=== PATIENT | female | born 1975 | race Caucasian/White ===

== ENCOUNTER 2016-07-21 15:34 | Emergency (ER) | payer BC ==
[2016-07-21 18:32] VITALS: BP 124/78
--- NOTE | 2016-07-21 19:11 | UC ---
Throat Pain/Nasal Akhil HPI - HPI Summary HPI Summary: kids trading Strep throat back and forth, now son is positive and on abx. She wants entire family treated simultaneously as they all have mild sore throats. - History of Current Complaint Chief Complaint: UCRespiratory Stated Complaint: ST Time Seen by Provider: 07/21/16 18:33 Hx Obtained From: Patient Hx Last Menstrual Period: 07/10/16 Onset/Duration: Gradual Onset, Lasting Days - 2 Severity: Mild Cough: None Associated Signs & Symptoms: Positive: Dysphagia - Epiglottits Risk Factors Epiglottis Risk Factors: Negative - Allergies/Home Medications Allergies/Adverse Reactions: Allergies Allergy/AdvReac Type Severity Reaction Status Date / Time environmental Allergy Congestion Uncoded 07/21/16 18:32 Home Medications: Home Medications Multivitamins/Minerals TAB* [Thera M Plus TAB*] 1 tab PO DAILY 07/21/16 [ History Confirmed 07/21/16] PMH/Surg Hx/FS Hx/Imm Hx Endocrine History Of: Reports: Thyroid Disease Denies: Diabetes - prediabetic Respiratory History Of: Reports: Asthma - Surgical History Surgical History: Yes Surgery Procedure, Year, and Place: R ACL repair - Family History Known Family History: Positive: Hypertension - Social History Occupation: Employed Full-time Lives: With Family Alcohol Use: None Substance Use Type: None Smoking Status (MU): Never Smoked Tobacco - Immunization History Most Recent Influenza Vaccination: Not the Season Review of Systems Constitutional: Fatigue Skin: Negative Eyes: Negative ENT: Sore Throat Respiratory: Negative Cardiovascular: Negative Gastrointestinal: Negative Genitourinary: Negative Motor: Negative Neurovascular: Negative Musculoskeletal: Negative Neurological: Negative Psychological: Negative All Other Systems Reviewed And Are Negative: Yes Physical Exam Triage Information Reviewed: Yes Appearance: Well-Appearing, No Pain Distress, Well-Nourished Vital Signs: Initial Vital Signs Temp 98.7 F 07/21/16 18:27 Pulse 91 07/21/16 18:27 Resp 20 07/21/16 18:27 BP 124/78 07/21/16 18:27 Pulse Ox 98 07/21/16 18:27 Vital Signs Reviewed: Yes Eye Exam: Normal Eyes: Positive: Conjunctiva Clear ENT: Positive: Pharyngeal erythema Neck exam: Normal Neck: Positive: Supple Respiratory Exam: Normal Cardiovascular Exam: Normal Musculoskeletal Exam: Normal Neurological Exam: Normal Psychological Exam: Normal Skin Exam: Normal Throat Pain/Nasal Course/Dx - Differential Dx/Diagnosis Differential Diagnosis/HQI/PQRI: Pharyngitis, URI Provider Diagnoses: pharyngitis Discharge - Discharge Plan Condition: Stable Disposition: HOME Prescriptions: Amoxicillin/Clavulanate TAB* [Augmentin TAB 875*] 875 mg PO BID #20 tab Patient Education Materials: Strep Throat (ED) Referrals: Luis Alfredo Marino MD [Primary Care Provider] -
== END 2016-07-21 19:28 | disposition home or self-care (01) ==
LOC: UCCORT 15:34
DX: J02.9 Acute pharyngitis, unspecified (principal)
CPT/HCPCS: 99212; G0463

== ENCOUNTER 2017-09-08 11:28 | Emergency (ER) | payer BC ==
[2017-09-08 11:54] VITALS: BP 117/77
--- NOTE | 2017-09-08 12:09 | UC ---
Respiratory Complaint HPI - HPI Summary HPI Summary: 1 week of worsening cough chest tightness, wheeze and congestion---needs to sleep sitting up at night - - History of Current Complaint Chief Complaint: UCRespiratory Stated Complaint: COUGH,RESPIRATORY Time Seen by Provider: 09/08/17 12:08 Hx Obtained From: Patient Hx Last Menstrual Period: present ?: No Onset/Duration: Gradual Onset, Lasting Weeks - 1, Still Present Timing: Constant Severity Initially: Mild Severity Currently: Mild Pain Intensity: 0 Character: Cough: Productive Aggravating Factors: Recumbent Position Alleviating Factors: Upright Position Associated Signs And Symptoms: Positive: Pleuritic Chest Pain, URI - Allergies/Home Medications Allergies/Adverse Reactions: Allergies Allergy/AdvReac Type Severity Reaction Status Date / Time environmental Allergy Congestion Uncoded 07/21/16 18:32 Home Medications: Home Medications Budesonide/Formote 160/4.5(NF) [Symbicort 160/4.5 (NF)] 1 puff PO DAILY [History Confirmed 09/08/17] LevoCETirizine TAB (NF) [Xyzal TAB (NF)] 5 mg PO DAILY 09/08/17 [History Confirmed 09/08/17] Mometasone Furoate [Nasonex] 17 gm NS DAILY 09/08/17 [History Confirmed 09/08/17 ] PMH/Surg Hx/FS Hx/Imm Hx Previously Healthy: No Respiratory History: Asthma - Surgical History Surgical History: Yes Surgery Procedure, Year, and Place: R ACL repair - Family History Known Family History: Positive: Hypertension - Social History Occupation: Works From/At Home Lives: With Family Alcohol Use: None Substance Use Type: None Smoking Status (MU): Never Smoked Tobacco - Immunization History Most Recent Influenza Vaccination: Not the Season Review of Systems Constitutional: Negative Skin: Negative Eyes: Negative ENT: Nasal Discharge Respiratory: Shortness Of Breath, Cough Cardiovascular: Negative Gastrointestinal: Negative Genitourinary: Negative Motor: Negative Neurovascular: Negative Musculoskeletal: Negative Neurological: Negative Psychological: Negative Is Patient Immunocompromised?: No All Other Systems Reviewed And Are Negative: Yes Physical Exam Triage Information Reviewed: Yes Appearance: Well-Nourished, Ill-Appearing, Pain Distress Vital Signs: Initial Vital Signs Temp 97.6 F 09/08/17 11:42 Pulse 62 09/08/17 11:42 Resp 18 09/08/17 11:42 BP 117/77 09/08/17 11:42 Pulse Ox 100 09/08/17 11:42 Vital Signs Reviewed: Yes Eye Exam: Normal Eyes: Positive: Conjunctiva Clear ENT Exam: Normal ENT: Positive: Normal ENT inspection, Hearing grossly normal, Pharynx normal, Nasal congestion, Uvula midline. Negative: Nasal drainage, Trismus, Muffled voice, Hoarse voice, Dental tenderness, Sinus tenderness Dental Exam: Normal Neck exam: Normal Neck: Positive: 1 Respiratory Exam: Normal Respiratory: Positive: Chest non-tender, No respiratory distress, No accessory muscle use, Rhonchi, Wheezing Cardiovascular Exam: Normal Cardiovascular: Positive: RRR, No Murmur, Pulses Normal, Brisk Capillary Refill Musculoskeletal Exam: Normal Musculoskeletal: Positive: Strength Intact, ROM Intact, No Edema Neurological Exam: Normal Neurological: Positive: Alert, Muscle Tone Normal Psychological Exam: Normal Skin Exam: Normal UC Diagnostic Evaluation - Laboratory O2 Sat by Pulse Oximetry: 100 Respiratory Course/Dx - Course Course Of Treatment: albuterol, prednisone, zithromax, increase fluids follow with pcp prn - Differential Dx/Diagnosis Provider Diagnoses: Bronchitis with Bronchospasm Discharge - Discharge Plan Condition: Stable Disposition: HOME Prescriptions: Albuterol 2.5MG/3ML (0.083%)* [Ventolin 2.5 MG/3 ML NEB.KATHERINE*] 2.5 mg INH Q4H #1 box Albuterol HFA INHALER* [Ventolin HFA Inhaler*] 2 puff INH Q4H PRN #1 mdi PRN Reason: cough Azithromycin TAB* [Zithromax TAB (Z-SHAZIA) 250 mg #6 tabs] 2 tab PO .TODAY, THEN 1 DAILY #1 shzaia guaiFENesin/CODIEN 100MG-10MG* [Robitussin AC 100Mg-10Mg*] 5 - 10 ml PO Q4H PRN #120 udc MDD 40 PRN Reason: cough predniSONE TAB* [Deltasone TAB*] 20 mg PO DAILY 6 Days #9 tab Patient Education Materials: Acute Bronchitis (ED), How to Use a Nebulizer (ED) , Bronchospasm (ED) Referrals: Luis Alfredo Marino MD [Primary Care Provider] - If Needed
== END 2017-09-08 12:28 | disposition home or self-care (01) ==
LOC: UCCORT 11:28
DX: J45.909 Unspecified asthma, uncomplicated (principal)
CPT/HCPCS: 99212; G0463

== ENCOUNTER 2018-02-26 12:43 | Emergency (ER) | payer BC ==
--- OUTSIDE RECORDS SUMMARY | 2018-02-26 14:19 | XMS REPORT ---
:1975 External Reference #:[id number] Author Organization [facility] Address [address] [place] [address] Phone [phone] Care Team Providers Name Role Phone Luis Alfredo Marino MD Care Team Information Sequins Slinger Unavailable Luis Alfredo Marino MD Primary Care Physician Unavailable Payers Type Date Identification Numbers Payment Provider Subscriber Commercial Effective: Policy Number: RANJITH Colbert Saray Brandon 2017 [id number] Shayan PayID: [id number] [address] [address] [place] [address] Medigap Part B Expires: 2017 Policy Number: RANJITH Colbert Livan Shayan [id number] PayID: [id number] [address] [address] [place] [address] Problems Date Description Provider Status Onset: 09/13/2017 Viremia Benny Lanier MD Active Onset: 09/13/2017 Acute bronchitis Benny Lanier MD Active Onset: 09/13/2017 Acute maxillary sinusitis Benny Lanier MD Active Onset: 04/26/2017 Uncomplicated moderate persistent Benny Lanier MD Active asthma Onset: 04/26/2017 Allergic rhinitis Benny Lanier MD Active Onset: 04/26/2017 Allergic rhinitis due to pollen Benny Lanier MD Active Family History Date Family Member(s) Problem(s) Comments General Asthma General Allergies Social History Type Date Description Comments Smoke-Free Home is smoke-free Pets Cows Pets 2 cats Pets 2 dogs Pets Guinea Pig Pets Lizards Pets Fish Smoking Patient has never smoked Smoking No Second Hand Smoke Exposure Allergies, Adverse Reactions, Alerts Date Description Reaction Status Severity Comments 04/26/2017 NKDA active Medications Medication Date Status Form Strength Qnty SIG Indications Ordering Provider Levocetirizine 11/24 Active Tablets 5mg 30tab Take 1 Augustine Wan s Tablet By MANISHA Licona Mouth Once Dailyas Needed Medrol 09/13 Active TBPK 4mg 21uni take as J01. ts directed Cliff Lanier MD Moxifloxacin HCL 09/13 Active Tablets 400mg 14tab one . s tablet by Cliff Lanier MD mouth every day x 14 days Mometasone 04/26 Active Suspension 50mcg/Act 17gm instill 2 J30.1 er Fur sprays Cliff Lanier MD into each nostril once daily Xyzal Allergy 04/26 Active Tablets 5mg 30tab take 1 30.1 24HR s tablet (5 Cliff Lanier MD mg) by oral route once daily as needed Proair HFA 04/26 Active Aerosol 108(90Bas 25.5g 2 puffs J30.1 e) m every 4 Cliff Lanier MD mcg/Act as needed Symbicort 04/26 Active Aerosol 160-4.5mc 10.2u 2 puff J30.1 g/Act nits Twice A MANISHA Licona Vitamin D-3 Active Capsules 1000Unit Unknown /0000 Vitamin B12 Active Tablets ER 1000mcg Unknown /0000 Magnesium Active Tablets 250mg Unknown /0000 Culturelle Active Capsules Unknown Digestive Health / Probiotic Levothyroxine Hx Tablets 112mcg 1 by Unknown Sodium /0000 mouth - every day 08/02 Montelukast Hx Tablets 10mg take one Unknown Sodium /0000 tablet by - mouth 04/26 daily in the evening Asmanex Hx Aerosol 220mcg/In inhale 1 Unknown Twisthaler 30 h puff by Metered Doses - mouth one 04/26 daily at nighttime Flonase Hx Suspension 27.5mcg/S spray 2 Unknown Sensimist /0000 pray sprays in - each 04/26 nostr once daily. Fish Oil Hx Capsules 1000mg 1 by Unknown /0000 mouth - every day 09/13 Medications Administered in Office Medication Date Status Form Strength Qnty SIG Indications Ordering Provider Allergy 02/02/ Administered Injection Christopher Injection 2 2017 Cliff Lanier MD Or More Allergy 01/24/ Administered Injection Christopher Injection 2 2017 Cliff Lanier MD Or More Allergy 01/19/ Administered Injection Christopher Injection 2 2017 Cliff Lanier MD Or More Allergy 01/12/ Administered Injection Christopher Injection 2 2017 Cliff Lanier MD Or More Allergy 01/05/ Administered Injection Christopher Injection 2 2017 Cliff Lanier MD Or More Allergy 12/27/ Administered Injection Christopher Injection 2 2017 Cliff Lanier MD Or More Allergy 12/20/ Administered Injection Christopher Injection 2 2018 Cliff Lanier MD Or More Allergy 12/15/ Administered Injection Christopher Injection 2 2017 Cliff Lanier MD Or More Allergy 12/08/ Administered Injection Christopher Injection 2 2017 Cliff Lanier MD Or More Allergy 12/06/ Administered Injection Christopher Injection 2 2018 Cliff Lanier MD Or More Allergy 11/15/ Administered Injection Christopher Injection 2 2018 Cliff Lanier MD Or More Allergy 11/10/ Administered Injection Christopher Injection 2 2018 Cliff Lanier MD Or More Allergy 11/08/ Administered Injection Christopher Injection 2 2018 Cliff Lanier MD Or More Allergy 11/03/ Administered Injection Christopher Injection 2 2018 Cliff Lanier MD Or More Allergy 10/27/ Administered Injection Christopher Injection 2 2017 Cliff Lanier MD Or More Allergy 10/20/ Administered Injection Christopher Injection 2 2017 Cliff Lanier MD Or More Allergy 10/13/ Administered Injection Christopher Injection 2 2017 Cliff Lanier MD Or More Allergy 10/04/ Administered Injection Christopher Injection 2 2017 Cliff Lanier MD Or More Allergy // Administered Injection Christopher Injection 2 2017 Cliff Lanier MD Or More Allergy // Administered Injection Christopher Injection 2 2018 Cliff Lanier MD Or More Allergy 09/01/ Administered Injection Christopher Injection 2 2018 Cliff Lanier MD Or More Allergy 08/25/ Administered Injection Christopher Injection 2 2018 Cliff Lanier MD Or More Vital Signs Date Vital Result Comment 02/02/2018 BP Systolic 122 mmHg BP Diastolic 84 mmHg Height 67 inches 5'7" Weight 193.00 lb BMI (Body Mass Index) 30.2 kg/m2 Heart Rate 72 /min Respiratory Rate 19 /min Body Temperature 98.4 F O2 % BldC Oximetry 98 % 09/13/2017 BP Systolic 124 mmHg BP Diastolic 68 mmHg Height 67 inches 5'7" Heart Rate 64 /min Body Temperature 98.6 F O2 % BldC Oximetry 98 % 08/02/2017 BP Systolic 124 mmHg BP Diastolic 83 mmHg Height 67 inches 5'7" Weight 195.00 lb BMI (Body Mass Index) 30.5 kg/m2 Heart Rate 86 /min Respiratory Rate 16 /min Body Temperature 98.3 F O2 % BldC Oximetry 96 % 04/26/2017 BP Systolic 114 mmHg BP Diastolic 80 mmHg Height 67 inches 5'7" Weight 190.00 lb BMI (Body Mass Index) 29.8 kg/m2 Heart Rate 72 /min Respiratory Rate 10 /min Body Temperature 98.7 F O2 % BldC Oximetry 97 % Results Test Date Test Result H/L Range Note Order 02/02/2018 Nitric Oxide <pending> PFT Supplies <pending> PFT With Bronchodilator <pending> Order 08/02/2017 Skin Test Seasonal and Environmental 59 Procedures Date CPT Code Description Status 02/02/2018 83269 Allergy Injection 2 Or More Completed 02/02/2018 81418 Nitric Oxide Gas Determination Completed 02/02/2018 29505 Bronchodilation Responsiveness Spirometry Pre/Post Completed Bronchodil Adm 01/24/2018 82147 Allergy Injection 2 Or More Completed 01/19/2018 85802 Allergy Injection 2 Or More Completed 01/12/2018 93439 Allergy Injection 2 Or More Completed 01/05/2018 82049 Allergy Injection 2 Or More Completed 12/27/2017 10394 Allergy Injection 2 Or More Completed 12/20/2017 03570 Allergy Injection 2 Or More Completed 12/15/2017 15733 Allergy Injection 2 Or More Completed 12/08/2017 35354 Allergy Injection 2 Or More Completed 12/06/2017 47547 Allergy Injection 2 Or More Completed 11/15/2017 38903 Allergy Injection 2 Or More Completed 11/10/2017 16132 Allergy Injection 2 Or More Completed 11/08/2017 86623 Allergy Injection 2 Or More Completed 11/03/2017 53874 Allergy Injection 2 Or More Completed 10/27/2017 88755 Allergy Injection 2 Or More Completed 10/20/2017 08102 Allergy Injection 2 Or More Completed 10/13/2017 98526 Allergy Injection 2 Or More Completed 10/04/2017 11250 Allergy Injection 2 Or More Completed 09/29/2017 78193 Allergy Injection 2 Or More Completed 09/27/2017 70896 Allergy Injection 2 Or More Completed 09/01/2017 37670 Allergy Injection 2 Or More Completed 08/25/2017 81252 Allergy Injection 2 Or More Completed 08/10/2017 91643 Allergy Antigens Single Or Multiple Completed 08/02/2017 90557 Allergy Tests Percutaneous W/ Allergenic Extracts Completed 08/02/2017 79499 Allergy Tests Percutaneous W/ Allergenic Extracts Completed 04/26/2017 81394 Nitric Oxide Gas Determination Completed 04/26/2017 44816 Bronchodilation Responsiveness Spirometry Pre/Post Completed Bronchodil Adm Encounters Type Date Location Provider CPT E/M Dx Office Visit 02/02/2018 8:30a [facility] 87184 J30.89 J30.1 J45.40 Office Visit 09/13/2017 11:15[place] [address] J01.01 J20.9 B34.9 Office Visit 08/02/2017 10:00a [place] MANISHA Perez 71439 J30.1 J30.89 J45.40 Office Visit 04/26/2017 11:30[place] [address] J30.1 J30.89 J45.40 Plan of Care Future Appointment(s):02/09/2018 2:00 pm - Coty Blair NP at [id number] - FAYE JangJ30.89 Other allergic [id number] Allergic rhinitis due to [id number] Moderate persistent asthma, uncomplicatedComments:Patient's PFT shows mild obstruction and exhaled nitric oxide is normal at 23 ppb. Patient to continue Symbicort for prophylaxis of her lungs and pro-air for breakthrough chest symptoms. Patient to continue Nasonex for prophylaxis of her nose and Xyzal for breakthrough nasal symptoms. Saline nasal rinse and HEPA air filter may help.Patient will try holding Symbicort in her lungs for 10-15 seconds and waiting 1 minute between inhalations.Patient to continue allergen immunotherapy injections.Patientwill be food tested for allergies. Patient to stop taking Xyzal 48 hours prior to the food test.Follow up:6 months, PFT and NIOX prior
--- OUTSIDE RECORDS SUMMARY | 2018-02-26 14:19 | XMS REPORT ---
:1975 External Reference #:[id number] Author Organization [facility] Address [address] [place] [address] Phone [phone] Care Team Providers Name Role Phone Luis Alfredo Marino MD Care Team Information Dipper And Baker Unavailable Luis Alfredo Marino MD Primary Care Physician Unavailable Payers Type Date Identification Numbers Payment Provider Subscriber Commercial Effective: Policy Number: RANJITH Michelus So Brandon 2017 [id number] Shayan PayID: [id number] [address] [address] [place] [address] Medigap Part B Expires: 2017 Policy Number: RANJITH Colbert Livan Shayan [id number] PayID: [id number] [address] [address] [place] [address] Problems Date Description Provider Status Onset: 02/09/2018 Allergy to other foods Coty Blair NP Active Onset: 09/13/2017 Viremia Benny Lanier MD Active [...] Form Strength Qnty SIG Indications Ordering Provider Epinephrine 02/09 Active Solution 0.3mg/0.3 2unit as Coty Auto-Injec ML s directed [place] Blair mat repeat in 30 mintues x 1. Levocetirizine 11/24 Active Tablets 5mg 30tab Take 1 Cade Wanide s Tablet By MANISHA Licona Mouth Once Dailyas Needed Medrol 09/13 Active TBPK 4mg 21uni take as J01. ts directed Cliff Lanier MD Moxifloxacin HCL 09/13 Active Tablets 400mg 14tab one J01. s tablet by Cliff Lanier MD mouth every day x 14 days Mometasone 04/26 Active Suspension 50mcg/Act 17gm instill 2 J30.1 Eighty Eight sprays Cliff Lanier MD into each nostril once daily Xyzal Allergy 04/26 Active Tablets 5mg 30tab take 1 J30.1 24HR s tablet (5 Cliff Lanier MD [...] Active Tablets ER 1000mcg Unknown /0000 Magnesium 00 Active Tablets 250mg Unknown /0000 Culturelle Active Capsules Unknown Digestive Health / Probiotic Levothyroxine Hx Tablets 112mcg 1 by Unknown Sodium /0000 mouth - every day 08/02 Montelukast Hx Tablets 10mg take one Unknown Sodium /0000 tablet by - mouth 04/26 daily in the evening Asmanex Hx Aerosol 220mcg/In inhale 1 Unknown Twisthaler 30 h puff by Metered Doses - mouth one 04/26 time daily at nighttime Flonase 00 Hx Suspension 27.5mcg/S spray 2 Unknown Sensimist /0000 pray sprays in - each 04/26 nostr once daily. Fish Oil Hx Capsules 1000mg 1 by Unknown /0000 mouth - every day 09/13 Medications Administered in Office Medication Date Status Form Strength Qnty SIG Indications Ordering Provider Allergy 02/16/ Administered Injection Christopher Injection 2 2017 Cliff Lanier MD Or More Allergy 02/02/ Administered Injection Christopher Injection 2 2018 Cliff Lanier MD Or More Allergy 01/24/ Administered Injection Christopher Injection 2 2017 Cliff Lanier MD Or More Allergy 01/19/ Administered Injection Christopher Injection 2 2018 Cliff Lanier MD Or More Allergy 01/12/ Administered Injection Christopher Injection 2 2018 Cliff Lanier MD Or More Allergy 01/05/ Administered Injection Christopher Injection 2 2017 Cliff Lanier MD Or More Allergy 12/27/ Administered Injection Christopher Injection 2 2018 Cliff Lanier MD Or More Allergy 12/20/ Administered Injection Christopher Injection 2 2018 Cliff Lanier MD Or More Allergy 12/15/ Administered Injection Christopher Injection 2 2018 Cliff Lanier MD Or More Allergy 12/08/ Administered Injection Christopher Injection 2 2018 Cliff Lanier MD Or More Allergy 12/06/ [...] 2018 Cliff Lanier MD Or More Allergy // Administered Injection Christopher Injection 2 2018 Cliff Lanier MD Or More Allergy 10/20/ Administered Injection Christopher Injection 2 2018 Cliff Lanier MD Or More Allergy 10/13/ Administered Injection Christopher Injection 2 2018 Cliff Lanier MD Or More Allergy // Administered Injection Christopher Injection 2 2018 Cliff Lanier MD Or More Allergy 04// Administered Injection Christopher Injection 2 2018 Cliff Lanier MD Or More Allergy 09/27/ Administered Injection Christopher Injection 2 2017 Cliff Lanier MD Or More Allergy 09/01/ Administered Injection Christopher Injection 2 2017 Cliff Lanier MD Or More Allergy 08/25/ [...] Date Test Result H/L Range Note Order 08/02/2017 Skin Test Seasonal and Environmental 59 Procedures Date CPT Code Description Status 02/16/2018 47960 Allergy Injection 2 Or More Completed 02/16/2018 08102 Allergy Tests Percutaneous W/ Allergenic Extracts Completed 02/09/2018 63386 Allergy Tests Percutaneous W/ Allergenic Extracts Completed 02/09/2018 90271 Allergy Tests Percutaneous W/ Allergenic Extracts Completed 02/02/2018 70274 Bronchodilation Responsiveness Spirometry Pre/Post Completed Bronchodil Adm 02/02/2018 66568 Bronchodilation Responsiveness Spirometry Pre/Post Completed Bronchodil Adm 02/02/2018 30323 Nitric Oxide Gas Determination Completed 02/02/2018 06211 Nitric Oxide Gas Determination Completed 02/02/2018 23775 Allergy Injection 2 Or More Completed 01/24/2018 95097 Allergy Injection 2 Or More Completed 01/19/2018 86275 Allergy Injection 2 Or More Completed 01/12/2018 21532 Allergy Injection 2 Or More Completed 01/05/2018 01546 Allergy Injection 2 Or More Completed 12/27/2017 50486 Allergy Injection 2 Or More Completed 12/20/2017 94807 Allergy Injection 2 Or More Completed 12/15/2017 04693 Allergy Injection 2 Or More Completed 12/08/2017 33644 Allergy Injection 2 Or More Completed 12/06/2017 90975 Allergy Injection 2 Or More Completed 11/15/2017 58085 Allergy Injection 2 Or More Completed 11/10/2017 58480 Allergy Injection 2 Or More Completed 11/08/2017 22191 Allergy Injection 2 Or More Completed 11/03/2017 32404 Allergy Injection 2 Or More Completed 10/27/2017 84532 Allergy Injection 2 Or More Completed 10/20/2017 61916 Allergy Injection 2 Or More Completed 10/13/2017 41481 Allergy Injection 2 Or More Completed 10/04/2017 18829 Allergy Injection 2 Or More Completed 09/29/2017 46760 Allergy Injection 2 Or More Completed 09/27/2017 96545 Allergy Injection 2 Or More Completed 09/01/2017 32637 Allergy Injection 2 Or More Completed 08/25/2017 35542 Allergy Injection 2 Or More Completed 08/10/2017 57216 Allergy Antigens Single Or Multiple Completed 08/02/2017 92736 Allergy Tests Percutaneous W/ Allergenic Extracts Completed 08/02/2017 67958 Allergy Tests Percutaneous W/ Allergenic Extracts Completed 04/26/2017 23905 Nitric Oxide Gas Determination Completed 04/26/2017 47840 Bronchodilation Responsiveness Spirometry Pre/Post Completed Bronchodil Adm Encounters Type Date Location Provider CPT E/M Dx Office Visit 02/02/2018 8:30a FAYE Cox 27246 J30.89 J30.1 J45.40 Office Visit 09/13/2017 11:15[place] [address] J01.01 J20.9 B34.9 Office Visit 08/02/2017 10:00a MANISHA Latif 13685 J30.1 J30.89 J45.40 Office Visit 04/26/2017 11:30[place] [address] J30.1 J30.89 J45.40 Plan of Care Future Appointment(s):02/21/2018 2:25 pm - Injection 1 at [facility]16/06/2018 10 :00 am - Coty Blair NP at [facility]/16/2018 - Coty Blair, NPZ91.018 Allergy to other foodsComments:Patient presents for discussion of skin test to foods with positives to crab, lobster, shrimp, scallop, green pea, celery and cow's milk.Also patient reports a direct correlation to shellfish when she consumed him there was swelling and closing of the throat, she received Benadryl with resolution of the symptoms no further actions were required. She is to employ lifetime avoidance of the shellfish. Patient also has chest tightness to ice cream and was positive to cows milk she is to avoid dairy as these symptoms could become more symptomatic and severe.She has a natural aversion to green peas she hates them and never eats them most likely due to GI symptoms that have occurred in the past.I have prescribed epinephrine 0.3mg/3ml IM injection following accidental ingestion and may repeat in 30 minutes if needed. Instructed if she uses her EpiPen wants to go directly to the emergency department for monitoring.The patient verbalized understanding of the seriousness of the allergies will employ lifetime avoidance and knows what to do if accidental ingestion occurs.J30.89 Other allergic [id number] Moderate persistent asthma, uncomplicatedComments:Patient reports breakthrough asthma symptoms heaviness in the chest, nighttime wheezing and shortness of breath during humid days. She is currently being managed on;Mometasone Furoate 50 mcg /Act instill 2 sprays into each nostril once dailyXyzal Allergy 24HR 5 mg take 1 tablet (5 mg) by oral route once daily as neededProair HFA 108 (90 Base ) mcg/Act 2 puffs every 4 as neededSymbicort 160-4.5 mcg/act 2 puff twice A day.Patient will discontinue Symbicort I have given her samples of Breo 200/25 MCG one inhalation daily. Patient will follow up in 3 weeks sooner if symptoms worsen or persist.Patient verbalized understanding of and agreement with the discharge plan.
--- OUTSIDE RECORDS SUMMARY | 2018-02-26 14:19 | XMS REPORT ---
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 Luis Alfredo Marino MD Primary Care Physician Unavailable Payers Type Date Identification Numbers Payment Provider Subscriber Commercial Effective: Policy Number: RANJITH Colbert Saray Brandon 2017 [id number] Shayan PayID: [id number] [address] [address] [place] [address] Medigap Part B Expires: 2017 Policy Number: RANJITH Colbert Livan Shayan [id number] PayID: [id number] [address] [address] [place] [address] Problems Date Description Provider Status Onset: 09/13/2017 [...] Administered Injection Christopher Injection 2 2017 Cliff Lnaier MD Or More Allergy 01/24/ Administered Injection [...] Procedures Date CPT Code Description Status 02/02/2018 89618 Allergy Injection 2 Or More Completed 01/24/2018 56738 Allergy Injection 2 Or More Completed 01/19/2018 40118 Allergy Injection 2 Or More Completed 01/12/2018 38484 Allergy Injection 2 Or More Completed 01/05/2018 49319 Allergy Injection 2 Or More Completed 12/27/2017 02645 Allergy Injection 2 Or More Completed 12/20/2017 04329 Allergy Injection 2 Or More Completed 12/15/2017 12811 Allergy Injection 2 Or More Completed 12/08/2017 80265 Allergy Injection 2 Or More Completed 12/06/2017 76628 Allergy Injection 2 Or More Completed 11/15/2017 65069 Allergy Injection 2 Or More Completed 11/10/2017 59414 Allergy Injection 2 Or More Completed 11/08/2017 41002 Allergy Injection 2 Or More Completed 11/03/2017 26393 Allergy Injection 2 Or More Completed 10/27/2017 25319 Allergy Injection 2 Or More Completed 10/20/2017 94726 Allergy Injection 2 Or More Completed 10/13/2017 47717 Allergy Injection 2 Or More Completed 10/04/2017 92551 Allergy Injection 2 Or More Completed 09/29/2017 07150 Allergy Injection 2 Or More Completed 09/27/2017 81206 Allergy Injection 2 Or More Completed 09/01/2017 68975 Allergy Injection 2 Or More Completed 08/25/2017 52716 Allergy Injection 2 Or More Completed 08/10/2017 63308 Allergy Antigens Single Or Multiple Completed 08/02/2017 07811 Allergy Tests Percutaneous W/ Allergenic Extracts Completed 08/02/2017 31027 Allergy Tests Percutaneous W/ Allergenic Extracts Completed 04/26/2017 19608 Nitric Oxide Gas Determination Completed 04/26/2017 05923 Bronchodilation Responsiveness Spirometry Pre/Post Completed Bronchodil Adm Encounters Type Date Location Provider CPT E/M Dx Office Visit 09/13/2017 11:15[place] [address] J01.01 J20.9 B34.9 Office Visit 08/02/2017 10:00a Kirt Daigle [facility]- [address] J30.1 J30.89 J45.40 Office Visit 04/26/2017 11:30[place] [address] J30.1 J30.89 J45.40 Plan of Care 09/13/2017 - Benny Lanier MDJ01.01 Acute recurrent maxillary sinusitisNew Medication:Medrol 4 mgMoxifloxacin HCL 400 mgJ20.9 Acute bronchitis , tdyusnczzzeA53.9 Viral infection, unspecified
[2018-02-26 14:46] VITALS: BP 117/79
--- NOTE | 2018-02-26 15:06 | UC ---
Respiratory Complaint HPI - HPI Summary HPI Summary: 42 y/o female presents to the urgent care c/o dry cough, SOB and chest tightness since Since pt c/o chest tightness- saw Dr. Lanier (pt's asthma MD) and was rx 'd prednisone 30mg BID x5 days. Was told to started prednisone, otc mucinex-d and do nebulizer tx q4h prn. Called today d/t worsening chest tightness, congestion, dry cough w/ wheezing. Starting last night pt noticed pain in btwn shoulder blades, states pain is worse when taking deep breaths. Last neb tx was 1200 today w/ no relief in sxs. Called Dr. Lanier's office and told to come here for further eval. - History of Current Complaint Chief Complaint: UCRespiratory Stated Complaint: CHEST CONGESTION, COUGH Time Seen by Provider: 02/26/18 14:47 Hx Obtained From: Patient Hx Last Menstrual Period: 02/06/18 Pain Intensity: 4 - Allergies/Home Medications Allergies/Adverse Reactions: Allergies Allergy/AdvReac Type Severity Reaction Status Date / Time milk Allergy See Comment Verified 02/26/18 14:34 shellfish derived Allergy Anaphylatic Verified 02/26/18 14:34 Shock environmental Allergy Congestion Uncoded 02/26/18 14:34 PMH/Surg Hx/FS Hx/Imm Hx - Surgical History Surgical History: Yes Surgery Procedure, Year, and Place: R ACL repair - Family History Known Family History: Positive: Hypertension - Social History Alcohol Use: None Substance Use Type: None Smoking Status (MU): Never Smoked Tobacco - Immunization History Most Recent Influenza Vaccination: Not the 2016/2017 Season Most Recent Tetanus Shot: UTD Physical Exam - Summary Physical Exam Summary: Vital Signs Reviewed: Yes General: well developed, well nourished female sitting in the examining table w/ o any apparent distress Eyes: Positive: Conjunctiva Clear - PERRLA, EOMI, fundi grossly normal ENT: Positive: Normal ENT inspection, Hearing grossly normal, Pharynx normal, Nasal congestion - edematous and erythematous nasal mucosa, Nasal drainage - yellowish drainage, TMs normal. Negative: Tonsillar swelling, Tonsillar exudate Neck: Positive: Supple, Nontender, No Lymphadenopathy Respiratory: no orthopnea or dyspnea. Able to speak in full sentences, no retractions or accessory muscle use, no tripod position, stridor, or head bobbing. CTA bilaterally, mild wheezing in the left upper posterior lung wheezes , rhonchi, rales. Cardiovascular: Positive: RRR, No Murmur, Pulses Normal, Brisk Capillary Refill Abdomen Description: Positive: Nontender, No Organomegaly, Soft. Negative: CVA Tenderness (R), CVA Tenderness (L) Bowel Sounds: Positive: Present Musculoskeletal Exam: Normal Musculoskeletal: Positive: Strength Intact, ROM Intact, No Edema Neurological Exam: Normal Psychological Exam: Normal Skin Exam: Normal Triage Information Reviewed: Yes Vital Signs: Initial Vital Signs Temp 98.5 F 02/26/18 14:37 Pulse 68 02/26/18 14:37 Resp 18 02/26/18 14:37 BP 117/79 02/26/18 14:37 Pulse Ox 100 02/26/18 14:37 Diagnostic Evaluation - Laboratory O2 Sat by Pulse Oximetry: 100 Respiratory Course/Dx - Differential Dx/Diagnosis Differential Diagnosis/HQI/PQRI: Asthma, Bronchitis, Influenza, Lower Resp Infection, Sinusitis Provider Diagnoses: 1- Asthma exacerbation due to bronchitis. 2- SOB Discharge - Sign-Out/Discharge Documenting (check all that apply): Patient Departure - D/C home All imaging exams completed and their final reports reviewed: No Studies - Discharge Plan Condition: Stable Disposition: HOME Prescriptions: Albuterol/Ipratropium NEB.KATHERINE* [Duoneb (Albuterol 2.5 MG/Ipratropium 0.5 MG)] 1 neb INH Q4H #1 box DOXYcycline CAP(*) [DOXYcycline 100MG CAP(*)] 100 mg PO BID #20 cap predniSONE TAB* [Deltasone TAB*] 5 mg PO DAILY #13 tab Patient Education Materials: Asthma (ED), Acute Bronchitis (ED) Referrals: Andrew Lanier MD [Medical Doctor] - 2 Days Luis Alfredo Marino MD [Primary Care Provider] - 2 Days Additional Instructions: 1- Take Prednisone PO taper dose as directed starting tomorrow. First loading dose given today. You will take 60mg PO qd tomorrow, then 40mg PO qd x 4 days. Use the Prednisone you have at home and 13 tabs were ordered at your pharmacy. 2-Use the Duoneb nebulizer treatment to alleviate SOB, and wheezing as directed . Increase fluid intake, rest and eat well. 3- Take Doxycycline PO as directed 4- If symptoms do not improve or worsen or your develop SOB with fever and severe wheezing please go immediately to the ER further evaluation and treatment. 5- Please F/u w/ your Waiter/Waitress Formal DR Lanier in 2 days for further management on your Asthma - Billing Disposition and Condition Condition: STABLE Disposition: Home
[2018-02-26] MEDS ORDERED: methylPREDNISolone 125 MG* 2 ML VIAL IM ONE (15:07)
[2018-02-26] MEDS ORDERED: Albuterol/Ipratropium NEB.SOL* Albuterol 2.5 MG/Ipratropium 0.5 MG 3 ML INH ONE (15:08)
== END 2018-02-26 16:27 | disposition home or self-care (01) ==
LOC: UCCORT 12:43
DX: J45.901 Unspecified asthma with (acute) exacerbation (principal)
CPT/HCPCS: 93005; 96372; 99212; A9270-GY; G0463; J2930

== ENCOUNTER 2018-12-07 18:03 | Emergency (ER) | payer BC ==
[2018-12-07 18:19] VITALS: BP 127/79
--- NOTE | 2018-12-07 18:34 | ED ---
Throat Pain/Nasal Congestion - HPI Summary HPI Summary: 43 yr old female with the complaint of three days of runny nose, post nasal drip , and bilateral maxillary sinus pain. She has had a cough as well. No fever. She does have left ear pain. She has had sinus infections before. - History of Current Complaint Chief Complaint: UCGeneralIllness Time Seen by Provider: 12/07/18 18:27 - Allergies/Home Medications Allergies/Adverse Reactions: Allergies Allergy/AdvReac Type Severity Reaction Status Date / Time milk Allergy See Comment Verified 02/26/18 14:34 shellfish derived Allergy Anaphylatic Verified 02/26/18 14:34 Shock environmental Allergy Congestion Uncoded 02/26/18 14:34 Home Medications: Home Medications Ibuprofen 600 mg PO DAILY PRN 12/07/18 [History Confirmed 12/07/18] PMH/Surg Hx/FS Hx/Imm Hx Endocrine/Hematology History: Denies: Hx Diabetes, Hx Thyroid Disease Cardiovascular History: Denies: Hx Hypertension Respiratory History: Denies: Hx Asthma, Hx Chronic Obstructive Pulmonary Disease (COPD) GI History: Denies: Hx Ulcer - Surgical History Surgery Procedure, Year, and Place: R ACL repair Infectious Disease History: No Infectious Disease History: Reports: Hx of Known/Suspected MRSA - Cyst in LEFT axilla Denies: Hx Clostridium Difficile, Hx Hepatitis, Hx Human Immunodeficiency Virus (HIV), Hx Shingles, Hx Tuberculosis, Hx Known/Suspected VRE, Hx Known/ Suspected VRSA, History Other Infectious Disease, Traveled Outside the [place] in Last 30 Days - Family History Known Family History: Positive: Hypertension - Social History Occupation: Employed Full-time Alcohol Use: None Substance Use Type: Reports: None Smoking Status (MU): Never Smoked Tobacco Review of Systems Constitutional: Negative Positive: Ear Ache, Nasal Discharge Positive: Cough All Other Systems Reviewed And Are Negative: Yes Physical Exam Triage Information Reviewed: Yes Vital Signs On Initial Exam: Initial Vitals Temp Pulse Resp BP Pulse Ox 98.5 F 59 18 127/79 100 12/07/18 18:14 12/07/18 18:14 12/07/18 18:14 12/07/18 18:14 12/07/18 18:14 Vital Signs Reviewed: Yes Appearance: Positive: Well-Appearing, No Pain Distress Skin: Positive: Warm, Skin Color Reflects Adequate Perfusion Head/Face: Positive: Normal Head/Face Inspection Eyes: Positive: EOMI, RODRIGO ENT: Positive: Pharyngeal erythema, Nasal congestion, Nasal drainage, TMs normal , Sinus tenderness Neck: Positive: Supple, Nontender Respiratory/Lung Sounds: Positive: Clear to Auscultation, Breath Sounds Present Cardiovascular: Positive: RRR. Negative: Murmur Abdomen Description: Negative: Distended Musculoskeletal: Positive: Strength/ROM Intact Neurological: Positive: Sensory/Motor Intact, Alert, Oriented to Person Place, Time, CN Intact II-III, Normal Gait, Speech Normal Psychiatric: Positive: Normal - Norman Coma Scale Best Eye Response: 4 - Spontaneous Best Motor Response: 6 - Obeys Commands Best Verbal Response: 5 - Oriented Coma Scale Total: 15 Diagnostics - Vital Signs Vital Signs Temp Pulse Resp BP Pulse Ox 12/07/18 18:14 98.5 F 59 18 127/79 100 - Laboratory Lab Statement: Any lab studies that have been ordered have been reviewed, and results considered in the medical decision making process. EENT Course/Dx - Course Course Of Treatment: 43 yr old with sinusitis. Rx with augmentin - Diagnoses Provider Diagnoses: Sinusitis Discharge - Sign-Out/Discharge Documenting (check all that apply): Patient Departure All imaging exams completed and their final reports reviewed: No Studies - Discharge Plan Condition: Good Disposition: HOME Prescriptions: Amoxicillin/Clavulanate TAB* [Augmentin TAB 875*] 875 mg PO BID #20 tab Patient Education Materials: Sinusitis (ED) Referrals: Luis Alfredo Marino MD [Primary Care Provider] - 2 Days - Billing Disposition and Condition Condition: GOOD Disposition: Home
== END 2018-12-07 18:35 | disposition home or self-care (01) ==
LOC: UCCORT 18:03
DX: J32.9 Chronic sinusitis, unspecified (principal)
CPT/HCPCS: 99212; G0463

== ENCOUNTER 2019-02-07 09:06 | Emergency (ER) | payer BC ==
[2019-02-07 09:22] VITALS: BP 121/76
--- NOTE | 2019-02-07 09:34 | UC ---
Throat Pain/Nasal Akhil HPI - HPI Summary HPI Summary: 43-year-old woman comes in with a chief complaint of runny nose sinus pressure and fevers. Patient's had a runny nose for several weeks. She does have environmental allergies. Last 3 days she's had sinus pressure her teeth are hurting. She had fever of 101 at home. She has tried some Sudafed does not helping. Recently his been seeing an technology recruiter and recently diagnosed with primary immunodeficiency. - History of Current Complaint Chief Complaint: UCGeneralIllness Stated Complaint: SINUS Time Seen by Provider: 02/07/19 09:27 Hx Last Menstrual Period: due in 2 days Pain Intensity: 3 - Allergies/Home Medications Allergies/Adverse Reactions: Allergies Allergy/AdvReac Type Severity Reaction Status Date / Time shellfish derived Allergy Anaphylatic Verified 02/26/18 14:34 Shock milk AdvReac See Comment Verified 02/07/19 09:22 environmental Allergy Congestion Uncoded 02/26/18 14:34 Home Medications: Home Medications Budesonide/Formote 160/4.5(NF) [Symbicort 160/4.5 (NF)] 2 puff INH BID 02/07/19 [History Confirmed 02/07/19] Fluticasone NASAL SPRAY 50MCG* [Flonase NASAL SPRAY 50MCG*] 2 spray BOTH NARES DAILY 02/07/19 [History Confirmed 02/07/19] Wrwplfdv07/Folic AC/Nadh/Coq10 [Xyzbac 1 mg] 1 tab PO DAILY 02/07/19 [History Confirmed 02/07/19] PMH/Surg Hx/FS Hx/Imm Hx Previously Healthy: Yes - primary immunodeficiency - Surgical History Surgical History: Yes Surgery Procedure, Year, and Place: R ACL repair - Family History Known Family History: Positive: Hypertension - Social History Alcohol Use: None Substance Use Type: None Smoking Status (MU): Never Smoked Tobacco - Immunization History Most Recent Influenza Vaccination: Not the 2016/2017 Season Most Recent Tetanus Shot: UTD Review of Systems All Other Systems Reviewed And Are Negative: Yes Constitutional: Positive: Fever Skin: Positive: Negative Eyes: Positive: Negative ENT: Positive: Nasal Discharge, Sinus Congestion, Sinus Pain/Tenderness Respiratory: Positive: Negative Cardiovascular: Positive: Negative Gastrointestinal: Positive: Negative Motor: Positive: Negative Neurovascular: Positive: Negative Musculoskeletal: Positive: Negative Neurological: Positive: Negative Psychological: Positive: Negative Is Patient Immunocompromised?: No Physical Exam Triage Information Reviewed: Yes Appearance: No Pain Distress, Well-Nourished, Ill-Appearing - MILD Vital Signs: Initial Vital Signs Temp 98.3 F 02/07/19 09:16 Pulse 77 02/07/19 09:16 Resp 18 02/07/19 09:16 BP 121/76 02/07/19 09:16 Pulse Ox 98 02/07/19 09:16 Vital Signs Reviewed: Yes Eye Exam: Normal Eyes: Positive: Conjunctiva Clear ENT: Positive: Pharyngeal erythema, Nasal congestion, Nasal drainage, TMs normal Neck: Positive: Supple Respiratory: Positive: Lungs clear, Normal breath sounds, No respiratory distress Cardiovascular: Positive: RRR Musculoskeletal: Positive: Strength Intact, ROM Intact Neurological: Positive: Alert, Muscle Tone Normal Psychological: Positive: Age Appropriate Behavior Skin Exam: Normal Throat Pain/Nasal Course/Dx - Course Course Of Treatment: DISCUSSED VIRAL VERSES BACTERIAL INFECTION AND THE ROLE OF ANTIBIOTICS. THE PATIENT PREFERS TO BE ON ANTIBIOTICS AT THIS TIME. - Differential Dx/Diagnosis Provider Diagnosis: Sinusitis Discharge - Sign-Out/Discharge Documenting (check all that apply): Patient Departure All imaging exams completed and their final reports reviewed: No Studies - Discharge Plan Condition: Stable Disposition: HOME Prescriptions: Amoxicillin/Clavulanate TAB* [Augmentin TAB 875*] 875 mg PO BID #20 tab Patient Education Materials: Sinusitis (ED) Referrals: Luis Alfredo Marino MD [Primary Care Provider] - Additional Instructions: FOLLOW UP WITH YOUR DOCTOR IF NOT COMPLETELY IMPROVED. GET RECHECKED SOONER IF YOUR CONDITION WORSENS OR ANY QUESTIONS OR CONCERNS. - Billing Disposition and Condition Condition: STABLE Disposition: Home
== END 2019-02-07 09:39 | disposition home or self-care (01) ==
LOC: UCCORT 09:06
DX: J32.9 Chronic sinusitis, unspecified (principal); R50.9 Fever, unspecified; Z91.011 Allergy to milk products; Z91.013 Allergy to seafood; J30.2 Other seasonal allergic rhinitis
CPT/HCPCS: 99212; G0463

== ENCOUNTER 2019-05-04 10:57 | Emergency (ER) | payer BC ==
--- OUTSIDE RECORDS SUMMARY | 2019-05-04 12:24 | XMS REPORT | Continuity of Care Document ---
:1975 External Reference #:[id number] Author Name MANISHA Perez (transmitted by agent of provider Benny Lanier) Address [address] [address] Care Team Providers Name Role Phone Luis Alfredo Marino MD - Internal Care Team Information Book Solicitor Medicine Problems Active Problems Provider Date Allergic rhinitis due to pollen Benny Lanier MD Onset: 04/26/2017 Allergic rhinitis Benny Lanier MD Onset: 04/26/2017 Uncomplicated moderate persistent Benny Lanier MD Onset: 04/26/2017 asthma Acute maxillary sinusitis Benny Lanier MD Onset: 09/13/2017 Acute bronchitis Benny Lanier MD Onset: 09/13/2017 Viremia Benny Lanier MD Onset: 09/13/2017 Allergy to other foods Coty Blair NP Onset: 02/09/2018 Exacerbation of moderate persistent MANISHA Perez Onset: 11/2017 asthma Immunodeficiency disorder MANISHA Perez Onset: 03/02/2018 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 03/15/2019 10mg Tablets (10 mg) by oral MD Yannick route once daily in the evening Gamunex-C infuse 35gms IV D84.9 Benny A. 09/19/2018 2.5GM/25ML q4 weeks MD Yannick Solution Ipratropium Inhale one vial 360ml J45.41 Benny A. 03/02/2018 [place]/Albuterol via nebulizer Q4 MD Yannick Sulfate hours as needed 0.5-2.5(3)mg/3ML Solution Epinephrine use as directed 4units Benny ASoni 02/09/2018 0.3mg/0.3ML as needed for MD Yannick Solution Auto-Inject anaphylaxis. Levocetirizine take 1 tablet by 90tabs Livan Wan, 11/24/2017 Dihydrochloride mouth once daily RPA-C 5mg as needed Tablets Proair HFA 2 puffs every 4 25.5gm J30.1 jena A. 04/26/2017 108(90Base) as needed MD Yannick mcg/Act Aerosol Symbicort 2 puff twice a 30.6gm J30.1 opher A. 04/26/2017 160-4.5mcg/Act day MD Yannick Aerosol Mometasone Furoate spray two sprays 51gm J30.1 jena A. 04/26/2017 in each nostril MD Yannick 50mcg/Act Suspension once daily. Medications Administered in Office Medication SIG Qnty Indications Ordering Provider Date Allergy Injection 2 Or More Benny Lanier MD 03/15/2019 Injection Allergy Injection 2 Or More Benny Lanier MD 03/08/2019 Injection Allergy Injection 2 Or More Benny Lanier MD 03/01/2019 Injection Allergy Injection 2 Or More Benny Lanier MD 02/15/2019 Injection Allergy Injection 2 Or More Benny Lanier MD 02/06/2019 Injection Allergy Injection 2 Or More Benny Lanier MD 01/30/2019 Injection Allergy Injection 2 Or More Benny Lanier MD 01/25/2019 Injection Allergy Injection 2 Or More Benny Lanier MD 01/11/2019 Injection Allergy Injection 2 Or More Benny Lanier MD 12/21/2018 Injection Allergy Injection 2 Or More Benny Lanier MD 11/28/2018 Injection Allergy Injection 2 Or More Benny Lanier MD 11/23/2018 Injection Allergy Injection 2 Or More Benny Lanier MD 11/09/2018 Injection Allergy Injection 2 Or More Benny Lanier MD 10/26/2018 Injection Allergy Injection 2 Or More Benny Lanier MD 10/19/2018 Injection Allergy Injection 2 Or More Benny Lanier MD 10/05/2018 Injection Allergy Injection 2 Or More Benny Lanier MD 09/28/2018 Injection Allergy Injection 2 Or More Benny Lanier MD 09/19/2018 Injection Allergy Injection 2 Or More Benny Lanier MD 09/14/2018 Injection Allergy Injection 2 Or More Benny Lanier MD 09/05/2018 Injection Allergy Injection 2 Or More Benny Lanier MD 08/29/2018 Injection Allergy Injection 2 Or More Benny Lanier MD 08/10/2018 Injection Allergy Injection 2 Or More Benny Lanier MD 08/03/2018 Injection Allergy Injection 2 Or More Benny Lanier MD 07/11/2018 Injection Allergy Injection 2 Or More Benny Lanier MD 07/04/2018 Injection Allergy Injection 2 Or More Benny Lanier MD 06/13/2018 Injection Allergy Injection 2 Or More Benny Lanier MD 06/08/2018 Injection Allergy Injection 2 Or More Benny Lanier MD 05/25/2018 Injection Allergy Injection 2 Or More Benny Lanier MD 05/16/2018 Injection Allergy Injection 2 Or More Benny Lanier MD 05/11/2018 Injection Allergy Injection 2 Or More Benny Lanier MD 05/04/2018 Injection Allergy Injection 2 Or More Benny Lanier MD 04/27/2018 Injection Allergy Injection 2 Or More Benny Lanier MD 04/20/2018 Injection Allergy Injection 2 Or More Benny Lanier MD 04/13/2018 Injection Allergy Injection 2 Or More Benny Lanier MD 03/30/2018 Injection Allergy Injection 2 Or More Benny Lanier MD 03/23/2018 Injection Allergy Injection 2 Or More Benny Lanier MD 02/16/2018 Injection Allergy Injection 2 Or More Benny Lanier MD 02/02/2018 Injection Allergy Injection 2 Or More Benny Lanier MD 01/24/2018 Injection Allergy Injection 2 Or More Benny Lanier MD 01/19/2018 Injection Allergy Injection 2 Or More Benny Lanier MD 01/12/2018 Injection Allergy Injection 2 Or More Benny Lanier MD 01/05/2018 Injection Allergy Injection 2 Or More Benny Lanier MD 12/27/2017 Injection Allergy Injection 2 Or More Benny Lanier MD 12/20/2017 Injection Allergy Injection 2 Or More Benny Lanier MD 12/15/2017 Injection Allergy Injection 2 Or More Benny Lanier MD 12/08/2017 Injection Allergy Injection 2 Or More Benny Lanier MD 12/06/2017 Injection Allergy Injection 2 Or More Benny Lanier MD 11/15/2017 Injection Allergy Injection 2 Or More Benny Lanier MD 11/10/2017 Injection Allergy Injection 2 Or More Benny Lanier MD 11/08/2017 Injection Allergy Injection 2 Or More Benny Lanier MD 11/03/2017 Injection Allergy Injection 2 Or More Benny Lanier MD 10/27/2017 Injection Allergy Injection 2 Or More Benny Lanier MD 10/20/2017 Injection Allergy Injection 2 Or More Benny Lanier MD 10/13/2017 Injection Allergy Injection 2 Or More Benny Lanier MD 10/04/2017 Injection Allergy Injection 2 Or More Benny Lanier MD 09/29/2017 Injection Allergy Injection 2 Or More Benny Lanier MD 09/27/2017 Injection Allergy Injection 2 Or More Benny Lanier MD 09/01/2017 Injection Allergy Injection 2 Or More Benny Lanier MD 08/25/2017 Injection Immunizations CPT Code Status Date Vaccine Lot # [id number] Given 04/03/2018 Pneumococcal Vaccine 2Yrs Or Older [id number] Vital Signs Date Vital Result Comment 03/15/2019 1:11pm BP Systolic 126 mmHg BP Diastolic 76 mmHg Height 67 inches 5'7" Weight 186.00 lb BMI (Body Mass Index) 29.1 kg/m2 Heart Rate 77 /min O2 % BldC Oximetry 98 % 09/19/2018 1:24pm BP Systolic 118 mmHg BP Diastolic 88 mmHg Height 67 inches 5'7" Weight 186.00 lb BMI (Body Mass Index) 29.1 kg/m2 Heart Rate 73 /min Respiratory Rate 18 /min O2 % BldC Oximetry 97 % Results Description No Information Available Procedures Date Code Description Status 03/15/2019 77605 Allergy Injection 2 Or More Completed 03/15/2019 52698 Nitric Oxide Gas Determination Completed 03/15/2019 23604 Bronchodilation Responsiveness Spirometry Pre/Post Completed Bronchodil Adm 03/08/2019 24916 Allergy Injection 2 Or More Completed 03/01/2019 28424 Allergy Injection 2 Or More Completed 02/15/2019 98780 Allergy Injection 2 Or More Completed 02/06/2019 73124 Allergy Injection 2 Or More Completed 01/30/2019 12749 Allergy Injection 2 Or More Completed 01/25/2019 12919 Allergy Injection 2 Or More Completed 01/11/2019 66584 Allergy Injection 2 Or More Completed 12/21/2018 86215 Allergy Injection 2 Or More Completed 11/30/2018 88334 Allergy Antigens Single Or Multiple Completed 11/28/2018 94302 Allergy Injection 2 Or More Completed 11/23/2018 43015 Allergy Injection 2 Or More Completed 11/09/2018 95597 Allergy Injection 2 Or More Completed 10/26/2018 05631 Allergy Injection 2 Or More Completed 10/19/2018 74683 Allergy Injection 2 Or More Completed 10/05/2018 90971 Allergy Injection 2 Or More Completed 09/28/2018 42623 Allergy Injection 2 Or More Completed 09/19/2018 96878 Allergy Injection 2 Or More Completed 09/19/2018 06420 Nitric Oxide Gas Determination Completed 09/19/2018 20190 Bronchodilation Responsiveness Spirometry Pre/Post Completed Bronchodil Adm 09/14/2018 56528 Allergy Injection 2 Or More Completed Medical Devices Description No Information Available Encounters Type Date Location Provider Dx Diagnosis Office Visit 03/15/2019 [place] Kiser J45.40 Moderate persistent 1:00p Fen[place], asthma, uncomplicated RPA-C J30.1 Allergic rhinitis due to pollen J30.89 Other allergic rhinitis 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 Z91.013 Allergy to seafood Office Visit 09/19/2018 [place] Nieves Kiser D84.9 Immunodeficiency, 1:00p Fenstermacher, RPA-C unspecified J30.1 Allergic rhinitis due to pollen J30.89 Other allergic rhinitis J45.40 Moderate persistent asthma, uncomplicated 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 Fenstermacher, RPA-C uncomplicated 03/15/2019 J30.1 Allergic rhinitis due to pollen Benny Lanier MD 03/15/2019 J30.1 Allergic rhinitis due to pollen Nieves S. Fenstermacher, RPA -C 03/15/2019 J30.89 Other allergic rhinitis Benny Lanier MD 03/15/2019 J30.89 Other allergic rhinitis Nieves S. Fenstermacher, RPA-C 03/15/2019 D83.8 Other common variable Nieves S. Fenstermacher, RPA-C immunodeficiencies 03/15/2019 Z91.013 Allergy to seafood Nieves S. Fenstermacher, RPA-C 03/08/2019 J45.40 Moderate persistent asthma, Benny Lanier MD uncomplicated 03/08/2019 J30.1 Allergic rhinitis due to pollen Benny Lanier MD 03/08/2019 J30.89 Other allergic rhinitis Benny Lanier MD 03/01/2019 J45.40 Moderate persistent asthma, Benny Lanier MD uncomplicated 03/01/2019 J30.1 Allergic rhinitis due to pollen Benny Lanier MD 03/01/2019 J30.89 Other allergic rhinitis Benny Lanier MD 02/15/2019 J45.40 Moderate persistent asthma, Benny Lanier MD uncomplicated 02/15/2019 J30.1 Allergic rhinitis due to pollen Benny Lanier MD 02/15/2019 J30.89 Other allergic rhinitis Benny Lanier MD 02/06/2019 J45.40 Moderate persistent asthma, Benny Lanier MD uncomplicated 02/06/2019 J30.1 Allergic rhinitis due to pollen Benny Lanier MD 02/06/2019 J30.89 Other allergic rhinitis Benny Lanier MD 01/30/2019 J45.40 Moderate persistent asthma, Benny Lanier MD uncomplicated 01/30/2019 J30.1 Allergic rhinitis due to pollen Benny Lanier MD 01/30/2019 J30.89 Other allergic rhinitis Benny Lanier MD 01/25/2019 J45.40 Moderate persistent asthma, Benny Lanier MD uncomplicated 01/25/2019 J30.1 Allergic rhinitis due to pollen Benny Lanier MD 01/25/2019 J30.89 Other allergic rhinitis Benny Lanier MD 01/11/2019 J45.40 Moderate persistent asthma, Benny Lanier MD uncomplicated 01/11/2019 J30.1 Allergic rhinitis due to pollen Benny Lanier MD 01/11/2019 J30.89 Other allergic rhinitis Benny Lanier MD 12/21/2018 J45.40 Moderate persistent asthma, Benny Lanier MD uncomplicated 12/21/2018 J30.1 Allergic rhinitis due to pollen Benny Lanier MD 12/21/2018 J30.89 Other allergic rhinitis Benny Lanier MD 11/30/2018 J30.1 Allergic rhinitis due to pollen Benny Lanier MD 11/30/2018 J30.89 Other allergic rhinitis Benny Lanier MD 11/28/2018 J45.40 Moderate persistent asthma, Benny Lanier MD uncomplicated 11/28/2018 J30.1 Allergic rhinitis due to pollen Benny Lanier MD 11/28/2018 J30.89 Other allergic rhinitis Benny Lanier MD 11/23/2018 J45.40 Moderate persistent asthma, Benny Lanier MD uncomplicated 11/23/2018 J30.1 Allergic rhinitis due to pollen Benny Lanier MD 11/23/2018 J30.89 Other allergic rhinitis Benny Lanier MD 11/09/2018 J45.40 Moderate persistent asthma, Benny Lanier MD uncomplicated 11/09/2018 J30.1 Allergic rhinitis due to pollen Benny Lanier MD 11/09/2018 J30.89 Other allergic rhinitis Benny Lanier MD 10/26/2018 J45.40 Moderate persistent asthma, Benny Lanier MD uncomplicated 10/26/2018 J30.1 Allergic rhinitis due to pollen Benny Lanier MD 10/26/2018 J30.89 Other allergic rhinitis Benny Lanier MD 10/19/2018 J45.41 Moderate persistent asthma with Benny Lanier MD (acute) exacerbation 10/19/2018 J30.1 Allergic rhinitis due to pollen Benny Lanier MD 10/19/2018 J30.89 Other allergic rhinitis Benny Lanier MD 10/05/2018 J30.1 Allergic rhinitis due to pollen Benny Lanier MD 10/05/2018 J30.89 Other allergic rhinitis Benny Lainer MD 09/28/2018 J45.41 Moderate persistent asthma with Benny Lanier MD (acute) exacerbation 09/28/2018 J30.1 Allergic rhinitis due to pollen Benny Lanier MD 09/28/2018 J30.89 Other allergic rhinitis Benny Lanier MD 09/19/2018 J45.41 Moderate persistent asthma with Benny Lanier MD (acute) exacerbation 09/19/2018 D84.9 Immunodeficiency, unspecified Nieves SSoni Gordillostermmaya, RPA-C 09/19/2018 J30.1 Allergic rhinitis due to pollen Benny Lanier MD 09/19/2018 J30.1 Allergic rhinitis due to pollen Nieves SSoni Gordillostermmaya, RPA -C 09/19/2018 J30.89 Other allergic rhinitis Benny Lanier MD 09/19/2018 J30.89 Other allergic rhinitis Nieves SSoni Gordillostermachejose antonio, RPA-C 09/19/2018 J45.40 Moderate persistent asthma, Nieves SSoni Gordillostermacher, RPA-C uncomplicated 09/19/2018 D83.8 Other common variable Nieves SSoni Gordillostermachejose antonio, RPA-C immunodeficiencies 09/14/2018 J45.40 Moderate persistent asthma, Benny Lanier MD uncomplicated 09/14/2018 J30.1 Allergic rhinitis due to pollen Benny Lanier MD 09/14/2018 J30.89 Other allergic rhinitis Benny Lanier MD Plan of Treatment Future Appointment(s):09/13/2019 9:00 am - Nieves Daigle RPA-C at [facility]/19/2019 - Nivees Daigle RPA-CJ45.40 Moderate persistent asthma, uncomplicatedNew Medication:Singulair 10 mg - take 1 tablet (10 mg) by oral route once daily in the eveningComments:Patient with moderate-persistent asthma. Today's PFT is within normal limits. NIOX is 22ppb. Continue Symbicort as prescribed. I will give Singulair for additional prophylaxis of the nose and chest. I have advised Saray to use Duoneb when she has chest congestion or breakthrough wheezing, chest tightness or shortness of breath.Follow up:6 months - w/PFT and NIOX prior to agxscN42.1 Allergic rhinitis due to pollenComments:Continue Nasonex and Xyzal as prescribed. Continue allergy injections as scheduled.Follow up:6 months.J30.89 Other allergic eufpomnvZ03.8 Other common variable immunodeficienciesComments:Patient has been approved for Gamunex. She plans to begin infusions as soon as Gamunex is available.Z91.013 Allergy to seafoodComments:Continue strict avoidance of all shellfish. I will renew EpiPen today. Functional Status Description No Information Available Mental Status Description No Information Available Referrals Description No Information Available
--- OUTSIDE RECORDS SUMMARY | 2019-05-04 12:24 | XMS REPORT | Continuity of Care Document ---
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 03/02/2018 [place]/Albuterol via nebulizer Q4 MD Yannick Sulfate hours as needed 0.5-2.5(3)mg/3ML Solution Epinephrine as directed mat 2units Coty Blair NP 02/09/2018 0.3mg/0.3ML repeat in 30 Solution Auto-Inject mintues x 1. Levocetirizine take 1 tablet by 90tabs Livan Wan, 11/24/2017 Dihydrochloride mouth once daily RPA-C 5mg as needed Tablets Proair HFA 2 puffs every 4 25.5gm J30.1 opher A. 04/26/2017 108(90Base) as needed MD Yannick mcg/Act Aerosol Symbicort 2 puff twice a 30.6gm J30.1 Christopher A. 04/26/2017 160-4.5mcg/Act day MD Yannick Aerosol Mometasone Furoate spray two sprays 51gm J30.1 opher A. 04/26/2017 in each nostril MD Yannick [...] 07/11/2018 Injection Allergy Injection 2 Or More Benyn Lanier MD 07/04/2018 Injection Allergy Injection 2 [...] CPT Code Status Date Vaccine Lot # [id number] Given 04/03/2018 Pneumococcal Vaccine 2Yrs Or Older [id number] Vital Signs Date Vital Result Comment 03/15/2019 [...] Available Procedures Date Code Description Status 03/15/2019 28779 Allergy Injection 2 Or More Completed 03/08/2019 72746 Allergy Injection 2 Or More Completed 03/01/2019 61998 Allergy Injection 2 Or More Completed 02/15/2019 30071 Allergy Injection 2 Or More Completed 02/06/2019 48194 Allergy Injection 2 Or More Completed 01/30/2019 32211 Allergy Injection 2 Or More Completed 01/25/2019 71568 Allergy Injection 2 Or More Completed 01/11/2019 19249 Allergy Injection 2 Or More Completed 12/21/2018 21366 Allergy Injection 2 Or More Completed 11/30/2018 89034 Allergy Antigens Single Or Multiple Completed 11/28/2018 25272 Allergy Injection 2 Or More Completed 11/23/2018 11562 Allergy Injection 2 Or More Completed 11/09/2018 54256 Allergy Injection 2 Or More Completed 10/26/2018 92691 Allergy Injection 2 Or More Completed 10/19/2018 75789 Allergy Injection 2 Or More Completed 10/05/2018 29827 Allergy Injection 2 Or More Completed 09/28/2018 29656 Allergy Injection 2 Or More Completed 09/19/2018 28728 Allergy Injection 2 Or More Completed 09/19/2018 85720 Nitric Oxide Gas Determination Completed 09/19/2018 69322 Bronchodilation Responsiveness Spirometry Pre/Post Completed Bronchodil Adm 09/14/2018 00078 Allergy Injection 2 Or More Completed Medical Devices Description No Information Available Encounters Type Date Location Provider Dx Diagnosis Office Visit 09/19/2018 [place] Kiser D84.9 Immunodeficiency, 1:00p Fenstermacher, unspecified RPA-C J30.1 Allergic rhinitis due to pollen J30.89 Other allergic rhinitis J45.40 Moderate persistent asthma, uncomplicated 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 Assessments Date Code Description Provider 03/15/2019 J30.1 Allergic rhinitis due to pollen Benny Lanier MD 03/15/2019 J30.89 Other allergic rhinitis Benny Lanier MD 03/08/2019 J45.40 Moderate persistent asthma, Benny Lanier MD uncomplicated 03/08/2019 J30.1 Allergic rhinitis due to pollen Bneny Lanier MD 03/08/2019 J30.89 Other allergic rhinitis [...] MD 10/05/2018 J30.89 Other allergic rhinitis Benny Lanier MD 09/28/2018 J45.41 Moderate persistent asthma with Benny Lanier MD (acute) exacerbation 09/28/2018 J30.1 Allergic rhinitis due to pollen Benny Lanier MD 09/28/2018 J30.89 Other allergic rhinitis Benny Lanier MD 09/19/2018 J45.41 Moderate persistent asthma with Benny Lanier MD (acute) exacerbation 09/19/2018 D84.9 Immunodeficiency, unspecified Nieves Daigle RPA-C 09/19/2018 J30.1 Allergic rhinitis due to pollen Benny Lanier MD 09/19/2018 J30.1 Allergic rhinitis due to pollen Nieves Lennonermmaya, RPA -C 09/19/2018 J30.89 Other allergic rhinitis Benny Lanier MD 09/19/2018 J30.89 Other allergic rhinitis Nieves Gordillostermmaya, RPA-C 09/19/2018 J45.40 Moderate persistent asthma, Nieves Daigle, RPA-C uncomplicated 09/19/2018 D83.8 Other common variable Nieves SSoni Lennonermmaya, RPA-C immunodeficiencies 09/14/2018 J45.40 Moderate persistent asthma, Benny Lanier MD uncomplicated 09/14/2018 J30.1 Allergic rhinitis due to pollen Benny Lanier MD 09/14/2018 J30.89 Other allergic rhinitis Benny Lanier MD Plan of Treatment No Information Available Functional Status Description No Information Available Mental Status Description No Information Available Referrals Description No Information Available
[2019-05-04 12:41] VITALS: BP 132/78
--- NOTE | 2019-05-04 12:46 | UC ---
Throat Pain/Nasal Akhil HPI - HPI Summary HPI Summary: 43 y/o female presents to the urgent care c/o sinus congestion and nasal discharge for the past week. Pt reports symptoms worsen w/ moderate sinus pain and gum pain specially in the RT maxillary sinuses/ w green discharge and PND and a dry cough. Pt w/ Hx of recurrent sinusitis. She is not felling well since she can't breath well at nigh since her nose is very congested. Pt has taken OTC medications e/o any improvement. Pt denies fever, dizziness, JUAREZ, SOB, chest pain, abdominal pain, N/V/D. - History of Current Complaint Chief Complaint: UCRespiratory Stated Complaint: SINUSES Time Seen by Provider: 05/04/19 12:45 Hx Obtained From: Patient Hx Last Menstrual Period: 27 days ?: No Onset/Duration: Gradual Onset, Lasting Weeks - 1 week, Still Present, Worse Since - 2 days ago Severity: Moderate Pain Intensity: 4 Pain Scale Used: 0-10 Numeric Cough: Nonproductive Associated Signs & Symptoms: Positive: Sinus Discomfort, Nasal Discharge - green , Other - PND and dry cough. Negative: Fever, Vomiting Related History: Other (Noted In Comments) - Hx of recurrent sinusitis - Epiglottits Risk Factors Epiglottis Risk Factors: Negative - Allergies/Home Medications Allergies/Adverse Reactions: Allergies Allergy/AdvReac Type Severity Reaction Status Date / Time shellfish derived Allergy Anaphylatic Verified 05/04/19 12:31 Shock milk AdvReac See Comment Verified 05/04/19 12:31 environmental Allergy Congestion Uncoded 05/04/19 12:31 Home Medications: Home Medications Levocetirizine Dihydrochloride [Xyzal] 5 mg PO QPM 05/04/19 [History Confirmed 05/04/19] Montelukast Sodium TAB* [Singulair 5 mg TAB*] 5 mg PO BEDTIME 05/04/19 [History Confirmed 05/04/19] PMH/Surg Hx/FS Hx/Imm Hx Previously Healthy: Yes Other Respiratory History: recurrent sinus infections - Surgical History Surgical History: Yes Surgery Procedure, Year, and Place: R ACL repair - Family History Known Family History: Positive: Hypertension, Diabetes - Social History Occupation: Employed Full-time Lives: With Family Alcohol Use: None Substance Use Type: None Smoking Status (MU): Never Smoked Tobacco - Immunization History Most Recent Influenza Vaccination: Not the 2015/2016 Season Most Recent Tetanus Shot: UTD Review of Systems All Other Systems Reviewed And Are Negative: Yes Constitutional: Positive: Negative Skin: Positive: Negative Eyes: Positive: Negative ENT: Positive: Ear Ache - B/L ear pressure, Nasal Discharge - green, Sinus Congestion, Sinus Pain/Tenderness, Other - green PND Respiratory: Positive: Cough - dry Cardiovascular: Positive: Negative Gastrointestinal: Positive: Negative Genitourinary: Positive: Negative Motor: Positive: Negative Neurovascular: Positive: Negative Musculoskeletal: Positive: Negative Neurological: Positive: Negative Psychological: Positive: Negative Is Patient Immunocompromised?: No Physical Exam - Summary Physical Exam Summary: Vitals: reviewed General: Well developed, well-nourished female patient with NAD. Head and face: Normocephalic and atraumatic, Positive tenderness over the frontal and maxillary sinuses.. Eyes: PERRLA, EOMI x 2. Normal conjunctiva. No eye discharge. ENT: Ears and TM with normal limits. Nose: edematous and erythematous nasal mucosa with with green discharge and erythematous mucosa. Pharynx with erythema, no exudate. green PND Neck: Supple, no JVD, no carotid bruits and no lymphadenopathy. Lungs: clear, no rales, no rhonchi, no wheezes. CVS: RRR, S1 and S2 present no murmurs or gallops appreciated. Abdomen: soft nontender with positive bowel sounds. Extremities: no edema noted. Neuro: WNL. Skin: warm and dry Triage Information Reviewed: Yes Vital Signs: Initial Vital Signs Temp 98.4 F 05/04/19 12:35 Pulse 80 05/04/19 12:35 Resp 20 05/04/19 12:35 BP 132/78 05/04/19 12:35 Pulse Ox 99 05/04/19 12:35 Throat Pain/Nasal Course/Dx - Course Course Of Treatment: 43 y/o female presents to the urgent care c/o sinus congestion and nasal discharge for the past week. Pt reports symptoms worsen w/ moderate sinus pain and gum pain specially in the RT maxillary sinuses/ w green discharge and PND and a dry cough. Pt w/ Hx of recurrent sinusitis. She is not felling well since she can't breath well at nigh since her nose is very congested. Pt has taken OTC medications e/o any improvement. Pt denies fever, dizziness, JUAREZ, SOB, chest pain, abdominal pain, N/V/D. Hx obtained. Pt w/ acute bacterial sinusitis on examination. Pt with 1 weeks of symptoms getting worse. Pt Rx Augmentin PO and flonase nasal spray. Discharge instructions explained to Pt. Advised to f/ u PCP or her ENT DR Waters if symptoms do not improve.Pt understood and agreed with plan of care. - Differential Dx/Diagnosis Differential Diagnosis/HQI/PQRI: Influenza, Laryngitis, Otitis Media, Pharyngitis, Sinusitis, URI Provider Diagnosis: Acute bacterial sinusitis Discharge ED - Sign-Out/Discharge Documenting (check all that apply): Patient Departure - d/c home All imaging exams completed and their final reports reviewed: No Studies - Discharge Plan Condition: Stable Disposition: HOME Prescriptions: Amoxicillin/Clavulanate TAB* [Augmentin TAB 875*] 875 mg PO BID #20 tab Fluconazole 150 MG TAB* [Diflucan 150 MG TAB*] 150 mg PO ONCE #1 tablet Patient Education Materials: Sinusitis (ED) Referrals: Luis Alfredo Marino MD [Primary Care Provider] - 3 Days Jose Velazquez MD [Medical Doctor] - 1 Week Additional Instructions: 1- Please increase fluid intake and rest. take full course of antibiotics to avoid resistance. Take yogurts w/ probiotics or Culturelle to protect your GI system 2-Use your Flonase as directed to help drain fluid. Also buy saline drops to clear sinuses 3-Please f/u w/ your PCP or your ENT Dr Sheth if symptoms do not improve for further management and treatment - Billing Disposition and Condition Condition: STABLE Disposition: Home - Attestation Statements Provider Attestation: Per institutional requirements, I have reviewed the chart, however, I was not consulted specifically or made aware of this patient by the midlevel provider. I did not personally evaluate, interact with , or disposition this patient.
== END 2019-05-04 13:08 | disposition home or self-care (01) ==
LOC: UCCORT 10:57
DX: J01.90 Acute sinusitis, unspecified (principal); Z91.011 Allergy to milk products; Z91.013 Allergy to seafood
CPT/HCPCS: 99212; G0463